=== PATIENT | female | born 2000 | race Caucasian/White ===

== ENCOUNTER 2024-10-19 12:00 | Emergency (ER) | payer OTHER ==
[2024-10-19 12:04] VITALS: TEMP 98
[2024-10-19 12:58] LABS: Basophils # (A) 0.03 10*3/uL (0.00-0.10); Basophils % (A) 0.4 %; Eosinophils # (A) 0.08 10*3/uL (0.04-0.35); Eosinophils % (A) 1.1 %; HCT 41.9 % (37.2-46.3); HGB 13.9 g/dL (12.0-15.0); Lymphocytes # (A) 1.68 10*3/uL (0.90-5.00); Lymphocytes % (A) 22.4 %; MCH 27.9 pg (27.0-32.0); MCHC 33.2 g/dL (32.0-37.0); MCV 84.1 fL (80.0-97.0); Monocytes # (A) 0.43 10*3/uL (0.20-1.00); Monocytes % (A) 5.7 %; Neutrophils # (A) 5.27 10*3/uL (1.80-7.70); Neutrophils % (A) 70.1 %; Platelet Count 256 10*3/uL (140-440); RBC 4.98 10*6/uL (4.10-5.20); RDW 13.7 % (11.5-14.5); WBC 7.51 10*3/uL (4.50-10.00)
--- NOTE | 2024-10-19 13:06 | ED ---
General Adult HPI - General Chief complaint: Vaginal Bleeding Stated complaint: vaginal bleeding, 4 weeks preg Time Seen by Provider: 10/19/24 12:07 Source: patient Mode of arrival: ambulatory Limitations: no limitations - History of Present Illness Initial comments: Dictation was produced using [employer] dictation software. please excuse any grammatical, word or spelling errors. Chief Complaint: 23-year-old female with vaginal bleeding and cramping History of Present Illness: 23-year-old female presents to the emergency department with vaginal bleeding and cramping. Patient is not sure but she is around 3 to 5 weeks . States that she was seen recently outside hospital for similar issues though there was no bleeding at the time. Patient was having worsening symptoms prompting her to come to the emergency department. Patient Nuys any fever, chills or night sweats. Denies that she has severe pelvic pain. States that she has been passing some clots where she is miscarrying. The ROS documented in this emergency department record has been reviewed and confirmed by me. Those systems with pertinent positive or negative responses have been documented in the HPI. All other systems are other negative and/or noncontributory. - Related Data Home Medications Medication Instructions Recorded Confirmed Aspirin [Children's Aspirin] 81 mg PO DAILY 12/20/22 12/20/22 Vit No.179/Iron/Folic 1 each PO DAILY 12/20/22 12/20/22 [ Tablet] Previous Rx's Medication Instructions Recorded Acetaminophen Tab [Tylenol] 650 mg PO Q6H PRN #30 tab 12/23/22 Ibuprofen [Motrin] 600 mg PO Q6HR PRN #30 tab 12/23/22 Cephalexin [Keflex] 500 mg PO Q12HR 7 Days #14 cap 10/19/24 Allergies Allergy/AdvReac Type Severity Reaction Status Date / Time acetaminophen [From Tylenol] Allergy Unknown Verified 10/19/24 12:04 nystatin Allergy Unknown Verified 10/19/24 12:04 Review of Systems ROS Statement: Those systems with pertinent positive or pertinent negative responses have been documented in the HPI. ROS Other: All systems not noted in ROS Statement are negative. Past Medical History Past Medical History: Asthma, Seizure Disorder Additional Past Medical History / Comment(s): epilepsy, last seizure 2 years ago in feb History of Any Multi-Drug Resistant Organisms: None Reported Past Surgical History: No Surgical Hx Reported Additional Past Surgical History / Comment(s): eardrum surgery, Past Anesthesia/Blood Transfusion Reactions: No Reported Reaction Past Psychological History: No Psychological Hx Reported Smoking Status: Former smoker Past Alcohol Use History: None Reported Past Drug Use History: None Reported - Past Family History Mother Family Medical History: Cancer, Seizure Disorder Additional Family Medical History / Comment(s): cervical cancer, epilepsy, lupus General Exam - General Exam Comments Initial Comments: PHYSICAL EXAM: General Impression: Alert and oriented x3, not in acute distress HEENT: Normocephalic atraumatic, extra-ocular movements intact, pupils equal and reactive to light bilaterally, mucous membranes moist. Cardiovascular: Heart regular rate and rhythm Chest: Able to complete full sentences, no retractions, no tachypnea Abdomen: abdomen soft, non-tender, non-distended, no organomegaly Musculoskeletal: Pulses present and equal in all extremities, no peripheral edema Motor: no focal deficits noted Neurological: CN II-XII grossly intact, no focal motor or sensory deficits noted Skin: Intact with no visualized rashes Psych: Normal affect and mood Pelvic exam: Refused Limitations: no limitations Course Vital Signs 10/19/24 10/19/24 12:01 13:26 Temperature 98 F 98 F Pulse Rate 92 88 Respiratory 20 18 Rate Blood Pressure 134/89 130/86 O2 Sat by Pulse 99 99 Oximetry Medical Decision Making - Medical Decision Making Was pt. sent in by a medical professional or institution (ABEL Cortés, DIRECTOR ACCOUNT MANAGEMENT, urgent ca re, hospital, or retirement...) When possible be specific @ -No Did you speak to anyone other than the patient for history (EMS, parent, family, police, friend...)? What history was obtained from this source @ -No Did you review nursing and triage notes (agree or disagree)? Why? @ -I reviewed and agree with nursing and triage notes Were old charts reviewed (outside hosp., previous admission, EMS record, old EKG, old radiological studies, urgent care reports/EKG's, retirement records)? Report findings @ -No old charts were reviewed Differential Diagnosis (chest pain, altered mental status, abdominal pain women, abdominal pain men, vaginal bleeding, musculoskeletal, weakness, fever, dyspnea, syncope, headache, dizziness, GI bleed, back pain, seizure, CVA, palpatations, mental health)? @ -Differential Vaginal Bleeding: Spontaneous , threatened , molar , ectopic , bloody show, incompetent cervix, abruptioplacenta, placenta previa, uterine rup ture, dysfunctional uterine bleeding, hemorrhage, uterine fibroids, this is not meant to be an all-inclusive list. EKG interpreted by me (3pts min.). @ -None done X-rays interpreted by me (1pt min.). @ -None done CT interpreted by me (1pt min.). @ -None done U/S interpreted by me (1pt. min.). @ -@Shows no intrauterine What testing was considered but not performed or refused? (CT, X-rays, U/S, labs)? Why? @ -None What meds were considered but not given or refused? Why? @ -None Was smoking cessation discussed for >3mins.? @ -No Were there social determinants of health that impacted care today? How? (Homelessness, low income, unemployed, alcoholism, drug addiction, transportation, low edu. Level, literacy, decrease access to med. care, prison, rehab)? @ -No Was there de-escalation of care discussed even if they declined (Discuss DNR or withdrawal of care, Hospice)? DNR status @ -No What co-morbidities impacted this encounter? (DM, HTN, Smoking, COPD, CAD, Canc er, CVA, ARF, Chemo, Hep., AIDS, mental health diagnosis, sleep apnea, morbid obesity)? @ -None Was patient admitted / discharged? Hospital course, mention meds given and route, prescriptions, significant lab abnormalities, going to OR and other pertinent info. @ -23-year-old female presents to the ER for pelvic pain and vaginal bleeding in . Patient is a positive blood type. Patient well-appearing vital signs are stable. Patient is concerned of miscarriage refusing pelvic exam. L abs obtained beta quant is 46.4. Urinalysis shows blood and white blood cells. Ultrasound shows no intrauterine likely miscarriage. Patient given ectopic precautions. Patient given referral to on-call OB. Did you discuss the management of the patient with other professionals (professionals i.e. , PA, DIRECTOR ACCOUNT MANAGEMENT, lab, RT, psych nurse, social work instructor, oracle erp developer, teacher, occupational health and safety officer, transplant case manager)? Give summary @ -No Was critical care preformed (if so, how long)? @ -No Undiagnosed new problem with uncertain prognosis? @ -No Drug Therapy requiring intensive monitoring for toxicity (Heparin, Nitro, Insulin, Cardizem)? @ -No Were any procedures done? @ -No Diagnosis/symptom? Acute, or Chronic, or Acute on Chronic? Uncomplicated (without systemic symptoms) or Complicated (systemic symptoms)? @ -Vaginal bleeding in Side effects of treatment? @ -No Exacerbation, Progression, or Severe Exacerbation? @ -No Poses a threat to life or bodily function? How? (Chest pain, USA, PA, pneumonia, PE, COPD, DKA, ARF, appy, cholecystitis, CVA, Diverticulitis, Homicidal, Suicidal, threat to staff... and all critical care pts) @ -yes - Lab Data Result diagrams: 10/19/24 12:30 10/19/24 12:30 Lab Results 10/19/24 10/19/24 10/19/24 Range/Units 12:25 12:30 12:30 WBC 7.51 (4.50-10.00) 10*3/uL RBC 4.98 (4.10-5.20) 10*6/uL Hgb 13.9 (12.0-15.0) g/dL Hct 41.9 (37.2-46.3) % MCV 84.1 (80.0-97.0) fL MCH 27.9 (27.0-32.0) pg MCHC 33.2 (32.0-37.0) g/dL Plt Count 256 (140-440) 10*3/uL MPV 10.0 (9.5-12.2) fL Immature Gran % (Auto) 0.3 % Neutrophils % 70.1 % Lymphocytes % 22.4 % Monocytes % 5.7 % Eosinophils % 1.1 % Basophils % 0.4 % Immature Gran # 0.02 (0.00-0.04) 10*3/uL Neutrophils # 5.27 (1.80-7.70) 10*3/uL Lymphocytes # 1.68 (0.90-5.00) 10*3/uL Monocytes # 0.43 (0.20-1.00) 10*3/uL Eosinophils # 0.08 (0.04-0.35) 10*3/uL Basophils # 0.03 (0.00-0.10) 10*3/uL PT 11.6 (10.0-12.5) sec INR 1.1 (<1.2) APTT 25.4 (22.0-30.0) sec Sodium (137-145) mmol/L Potassium (3.5-5.1) mmol/L Chloride (98-107) mmol/L Carbon Dioxide (22-30) mmol/L Anion Gap mmol/L BUN (7-17) mg/dL Creatinine (0.52-1.04) mg/dL Est GFR (CKD-EPI)AfAm (>60 ml/min/1.73 sqM) Est GFR (CKD-EPI)NonAf (>60 ml/min/1.73 sqM) Glucose (74-99) mg/dL Calcium (8.4-10.2) mg/dL Total Bilirubin (0.2-1.3) mg/dL AST (14-36) U/L ALT (4-34) U/L Alkaline Phosphatase (38-126) U/L Total Protein (6.3-8.2) g/dL Albumin (3.5-5.0) g/dL HCG, Quant mIU/mL Urine Color Urine Appearance (Clear) Urine pH (5.0-8.0) Ur Specific [place] (1.001-1.035) Urine Protein (Negative) Urine Glucose (UA) (Negative) Urine Ketones (Negative) Urine Blood (Negative) Urine Nitrite (Negative) Urine Bilirubin (Negative) Urine Urobilinogen (<2.0) mg/dL Ur Leukocyte Esterase (Negative) Urine RBC (0-5) /hpf Urine WBC (0-5) /hpf Urine WBC Clumps (None) /hpf Ur Squamous Epith Cells (0-4) /hpf Urine Bacteria (None) /hpf Blood Type A Positive Blood Type Recheck A Pos Bld Type Recheck Status No Antibody Screen NEGATIVE Spec Expiration Date 10/22/2024 - 232410/19/24 10/19/24 Range/Units 12:30 12:43 WBC (4.50-10.00) 10*3/uL RBC (4.10-5.20) 10*6/uL Hgb (12.0-15.0) g/dL Hct (37.2-46.3) % MCV (80.0-97.0) fL MCH (27.0-32.0) pg MCHC (32.0-37.0) g/dL Plt Count (140-440) 10*3/uL MPV (9.5-12.2) fL Immature Gran % (Auto) % Neutrophils % % Lymphocytes % % Monocytes % % Eosinophils % % Basophils % % Immature Gran # (0.00-0.04) 10*3/uL Neutrophils # (1.80-7.70) 10*3/uL Lymphocytes # (0.90-5.00) 10*3/uL Monocytes # (0.20-1.00) 10*3/uL Eosinophils # (0.04-0.35) 10*3/uL Basophils # (0.00-0.10) 10*3/uL PT (10.0-12.5) sec INR (<1.2) APTT (22.0-30.0) sec Sodium 138 (137-145) mmol/L Potassium 3.9 (3.5-5.1) mmol/L Chloride 106 (98-107) mmol/L Carbon Dioxide 23 (22-30) mmol/L Anion Gap 9 mmol/L BUN 5 L (7-17) mg/dL Creatinine 0.68 (0.52-1.04) mg/dL Est GFR (CKD-EPI)AfAm >90 (>60 ml/min/1.73 sqM) Est GFR (CKD-EPI)NonAf >90 (>60 ml/min/1.73 sqM) Glucose 95 (74-99) mg/dL Calcium 9.4 (8.4-10.2) mg/dL Total Bilirubin 0.4 (0.2-1.3) mg/dL AST 22 (14-36) U/L ALT 18 (4-34) U/L Alkaline Phosphatase 79 (38-126) U/L Total Protein 7.0 (6.3-8.2) g/dL Albumin 4.2 (3.5-5.0) g/dL HCG, Quant 46.4 mIU/mL Urine Color Light Red Urine Appearance Cloudy H (Clear) Urine pH 7.5 (5.0-8.0) Ur Specific [place] 1.003 (1.001-1.035) Urine Protein 1+ H (Negative) Urine Glucose (UA) Negative (Negative) Urine Ketones Negative (Negative) Urine Blood Large H (Negative) Urine Nitrite Negative (Negative) Urine Bilirubin Negative (Negative) Urine Urobilinogen <2.0 (<2.0) mg/dL Ur Leukocyte Esterase Large H (Negative) Urine RBC >182 H (0-5) /hpf Urine WBC 95 H (0-5) /hpf Urine WBC Clumps Few H (None) /hpf Ur Squamous Epith Cells 1 (0-4) /hpf Urine Bacteria Rare H (None) /hpf Blood Type Blood Type Recheck Bld Type Recheck Status Antibody Screen Spec Expiration Date Disposition Clinical Impression: Vaginal bleeding Disposition: HOME SELF-CARE Instructions (If sedation given, give patient instructions): Threatened Miscarriage (ED) Prescriptions: Cephalexin [Keflex] 500 mg PO Q12HR 7 Days #14 cap Is patient prescribed a controlled substance at d/c from ED?: No Referrals: Marisa Bacon MD [STAFF PHYSICIAN] - 1-2 days Time of Disposition: 14:21
[2024-10-19 13:11] LABS: INR 1.1 (<1.2); Partial Thromboplastin Time 25.4 sec (22.0-30.0); Prothrombin Time 11.6 sec (10.0-12.5)
[2024-10-19 13:12] LABS: ALT 18 U/L (4-34); AST 22 U/L (14-36); African American GFR (CKD) >90 (>60 ml/min/1.73 sqM); Albumin 4.2 g/dL (3.5-5.0); Alkaline Phosphatase 79 U/L (38-126); Anion Gap 9 mmol/L; Blood Urea Nitrogen 5 mg/dL (7-17); Calcium 9.4 mg/dL (8.4-10.2); Carbon Dioxide 23 mmol/L (22-30); Chloride 106 mmol/L (98-107); Glucose 95 mg/dL (74-99); Non-African American GFR(CKD) >90 (>60 ml/min/1.73 sqM); Potassium 3.9 mmol/L (3.5-5.1); Sodium 138 mmol/L (137-145); Total Bilirubin 0.4 mg/dL (0.2-1.3)
--- NOTE | 2024-10-19 13:21 | US ---
EXAMINATION TYPE: Transabdominal DATE OF EXAM: 10/19/2024 1:05 PM COMPARISON: NONE CLINICAL INDICATION: Female, 23 years old with history of pelvic pain; TECHNIQUE: Transabdominal (TA) with grayscale and color Doppler imaging including first trimester pre gnancy. FINDINGS: EXAM MEASUREMENTS: GESTATIONAL AGE / DATING Physician Established: Not yet established Dates by LMP: LMP unknown Dates by First Scan: No previous this is first scan Dates by Current Scan for: No IUP seen at this time MATERNAL ANATOMY Uterus: 8.1 x 4.2 x 5.4cm Right Ovary: 2.7 x 2.2 x 2.2cm Left Ovary: 3.2 x 1.3 x 2.3cm Post CDS / Adnexa: wnl Presence of free fluid: no Presence of corpus luteal cyst: no Presence of subchorionic bleed: no GESTATION / SURVEY IUP: No IUP seen at this time Date of LMP: Unknown Beta HcG (if available): Not available at time of exam No intrauterine gestation identified. IMPRESSION: No evidence of intrauterine gestational sac, correlate with B-hCG. If positive, this could represent early , ectopic or spontaneous . Follow up pelvic ultrasound in 5-7 days a nd serial beta hCG studies are recommended. [facility], , 10/19/2024 1:19 PM
[2024-10-19 13:25] LABS: Appearance,Urine Cloudy (Clear); Bacteria,Urine Rare /hpf; Bilirubin,Urine Negative (Negative); Blood,Urine Large (Negative); Color,Urine Light Red; Glucose,Urine (UA) Negative (Negative); Ketones,Urine Negative (Negative); Leukocyte Esterase,Urine Large (Negative); Nitrite,Urine Negative (Negative); PH, Urine 7.5 (5.0-8.0); Protein,Urine 1+ (Negative); RBC,Urine >182 /hpf (0-5); Specific Gravity,Urine 1.003 (1.001-1.035); Squamous Epithelial Cell,Urine 1 /hpf (0-4); Urobilinogen,Urine <2.0 mg/dL (<2.0); WBC,Urine 95 /hpf (0-5)
[2024-10-19 13:29] LABS: HCG,Quantitative Serum 46.4 mIU/mL
[2024-10-19 14:27] VITALS: BP 128/82; PULSE 84; RESP 16
== END 2024-10-19 14:27 | disposition home or self-care (01) ==
LOC: EC 12:00 → MERGE 12:00 → EC 14:27
DX: O20.9 Hemorrhage in early pregnancy, unspecified (principal); Z88.1 Allergy status to other antibiotic agents; Z88.6 Allergy status to analgesic agent; Z87.891 Personal history of nicotine dependence; Z3A.01 Less than 8 weeks gestation of pregnancy
CPT/HCPCS: 36415; 76801; 80053; 81001; 84702; 85025; 85610; 85730; 86850; 86900; 86901; 99284

== ENCOUNTER → 2024-10-22 | Outpatient (CLI) | payer OTHER | END | disposition home or self-care (01) | LOC: LABWHC1 13:14 | PROVIDERS: ATTEND Emergency Medicine | DX: Z00.00 Encounter for general adult medical examination without abnormal findings (principal) | CPT/HCPCS: 36415; 84702 ==